=== PATIENT | female | born 1940 | race Caucasian/White ===

== ENCOUNTER 2018-10-01 08:48 | Outpatient (CLI) | payer MEDICARE ==
[2018-10-01] MEDS ORDERED: Gadobenate Dimeglumine 529 MG/1 ML (20ML VIAL) ONE (09:00)
--- NOTE | 2018-10-01 13:23 | MRI ---
MRI BRAIN WITH AND WITHOUT CONTRAST: INDICATIONS: Right arm numbness. FINDINGS: There is global atrophy without acute territorial infarction, intracranial mass effect, or midline sh ift. Compensatory dilatation of the ventricular system is present. There is mild chronic ischemic d isease involving the cerebral white matter. No hemorrhagic susceptibility is present within the brai n parenchyma. No pathologic intraaxial enhancement. There is a partially empty sella. Retention cy st formation is seen at the left maxillary sinus. IMPRESSION: 1. No acute territorial infarction or mass effect. 2. Mild chronic ischemic disease and global atrophy. POS: [facility]
--- NOTE | 2018-10-01 13:37 | MRI ---
MRI CERVICAL SPINE NONCONTRAST: INDICATIONS: Right arm numbness. No prior comparison imaging. FINDINGS: There is multilevel susceptibility, which distorts imaging anatomy and limits assessment, as a result of ACDF spanning the C4 through the C7 region. No obvious acute malalignment of the cervical spine. There is degenerative hypertrophy of the craniocervical junction and involving the atlantodental ar ticulation. No acute marrow edema. The cervical spinal cord demonstrates appropriate caliber and si gnal, within limitations. No significant central canal stenosis at the C1-C2 or C2-C3 levels. C3-C4: There is a mild broad-based disk osteophyte effacing the ventral thecal sac without significan t central canal stenosis. Mild bilateral neural foraminal narrowing is present, when combined with b ilateral facet hypertrophy. C4-C5: There is a left asymmetric broad-based osteophyte present, with mild effacement of the ventral thecal sac. There is minimal narrowing of each neural foramen. C5-C6: Mild central canal stenosis results in broad-based osteophyte. There is moderate to severe ri ght and moderate left neural foraminal narrowing due to uncinate process and facet hypertrophy. C6-7: Right asymmetric broad-based osteophytes present with slight effacement of the ventral right h emicord. There is mild central canal stenosis. Mild to moderate right neural foraminal narrowing as a result of asymmetric, prominent right uncinate process hypertrophy. This does efface the ventral aspect of the right C7 nerve root. C7-T1: No significant compromise of the central canal or neural foramina. IMPRESSION: Multilevel susceptibility from anterior cervical diskectomy and fusion change, limiting assessment. There is multilevel degenerative change, as outlined above. POS: [facility]
== END 2018-10-01 08:49 | disposition home or self-care (01) ==
LOC: SCSMRI 08:48
PROVIDERS: ATTEND Psychiatry & Neurology Neurology
DX: R20.0 Anesthesia of skin (principal); M47.812 Spondylosis without myelopathy or radiculopathy, cervical region; Z98.1 Arthrodesis status
CPT/HCPCS: 70553; 72141; 82565; A9577

== ENCOUNTER 2021-09-28 13:46 | Outpatient (CLI) | payer MEDICARE | END 2021-09-28 13:47 | disposition home or self-care (01) | LOC: BICMAMMO 13:46 | PROVIDERS: ATTEND Family Medicine | DX: Z12.31 Encounter for screening mammogram for malignant neoplasm of breast (principal) | CPT/HCPCS: 77063; 77067 ==

== ENCOUNTER 2022-01-21 10:27 | Outpatient (CLI) | payer MEDICARE ==
[2022-01-21 11:41] LABS: #Basophils 0.1 10x3/uL (0.0-0.2); #Eosinphils 0.4 10x3/uL (0.0-0.5); #Monocytes 0.9 10x3/uL (0.0-1.1); %Basophils 0.9 % (0.0-2.0); %Eosinophils 4.6 % (0.0-6.0); %Lymphocytes 22.8 % (18.0-47.0); %Monocytes 9.3 % (0.0-10.0); %Neutrophils 62.1 % (40.0-75.0); Hemoglobin 13.1 g/dL (12.0-15.5); Mean Corpuscular HGB CONC 32.8 g/dL (32.0-36.0); Mean Corpuscular Hemoglobin 30.5 pg (27.0-33.0); Mean Corpuscular Volume 93.2 fl (81.6-98.3); Mean Platelet Volume 10.7 fl (7.4-10.4); Platelet Count 296 10x3/uL (150-450); RBC Distribution Width 13.6 % (11.5-14.5); Red Blood Cell (RBC) Count 4.29 10x6/uL (3.90-5.03); White Blood Cell (WBC) Count 9.7 10x3/uL (3.5-10.5)
[2022-01-21 11:59] LABS: Anion Gap 20 mmol/L (10-20); BUN (Urea Nitrogen) 20 mg/dL (9.8-20.1); Calc. Creatinine Clearance 0 mL/min (70-130); Calcium 9.8 mg/dL (7.8-10.44); Carbon Dioxide 21 mmol/L (23-31); Chloride 107 mmol/L (98-107); Glucose 99 mg/dL (83-110); Potassium 4.5 mmol/L (3.5-5.1); Sodium 143 mmol/L (136-145)
[2022-01-21 12:19] LABS: INR-International Normal Ratio 0.9; Prothrombin Time 9.8 sec (9.5-12.1)
== END 2022-01-21 10:28 | disposition home or self-care (01) ==
LOC: LABBT 10:27
PROVIDERS: ATTEND Orthopaedic Surgery
DX: Z01.812 Encounter for preprocedural laboratory examination (principal); M17.11 Unilateral primary osteoarthritis, right knee; Z20.822 Contact with and (suspected) exposure to COVID-19
CPT/HCPCS: 80048; 85025; 85610; 87081; U0003; U0005

== ENCOUNTER 2022-01-26 05:38 | Observation (INO) | payer MEDICARE ==
[2022-01-24 10:19] VITALS: BMI 27.4
[2022-01-26] MEDS ORDERED: Vancomycin 1 GM/200 ML BAG ONE (05:57)
[2022-01-26] MEDS ORDERED: Sodium Chloride 0.9% 100 ML ONE ×2 (05:57→06:56)
[2022-01-26] MEDS ORDERED: Tranexamic Acid 1,000 MG/10 ML VIAL ONE (05:57)
[2022-01-26] MEDS ORDERED: fentaNYL Citrate/PF 100 MCG/2 ML SYRINGE ONE (06:28)
[2022-01-26] MEDS ORDERED: Bupivacaine 0.25% HCL 30 ML VIAL ONE (06:39)
[2022-01-26] MEDS ORDERED: Fentanyl 100 MCG/2 ML VIAL ONE ×2 (06:50→09:44)
[2022-01-26] MEDS ORDERED: CEFAZOLIN 2 GM VIAL ONE (06:56)
[2022-01-26] MEDS ORDERED: Dexamethasone 20 MG/5 ML VIAL ONE (07:20)
[2022-01-26] MEDS ORDERED: Labetalol HCl 100 MG/20 ML VIAL ONE (07:20)
[2022-01-26] MEDS ORDERED: Bupivacaine HCl 0.5%/Epinephrine 1:200,000/PF 30 ml Vial ONE (07:20)
[2022-01-26] MEDS ORDERED: PROPOFOL 200 MG/20 ML VIAL ONE (07:20)
[2022-01-26] MEDS ORDERED: Ondansetron PF 4 MG/2 ML Vial ONE (07:20)
[2022-01-26] MEDS ORDERED: Zolpidem Tartrate 5 MG TAB PO PRN (08:30)
[2022-01-26] MEDS ORDERED: Ondansetron PF 4 MG/2 ML Vial IVP PRN (08:30)
[2022-01-26] MEDS ORDERED: traMADol HCl 50 MG TAB PO PRN ×2 (08:30)
[2022-01-26] MEDS ORDERED: Promethazine HCl 25 MG/ML VIAL IM PRN (08:30)
[2022-01-26] MEDS ORDERED: Ropivacaine 0.2% 550 ML 550 ML NERVE BLCK SCH (08:30)
[2022-01-26] MEDS ORDERED: HYDROcodone/Acetaminophen 10/325 mg Tablet PO PRN ×2 (08:30)
[2022-01-26] MEDS ORDERED: Acetaminophen 325 MG TAB PO PRN (09:33)
[2022-01-26] MEDS ORDERED: diphenhydrAMINE 25 MG CAP PO PRN (09:33)
[2022-01-26] MEDS: Fentanyl 100 MCG/2 ML VIAL SLOW IVP PRN ×2 (13:08→15:49)
[2022-01-26] MEDS: Ketorolac Tromethamine 30 MG/ML VIAL IVP SCH ×3 (13:12→23:24)
[2022-01-26] MEDS: CEFAZOLIN 2 GM in Sodium Chloride 0.9% 100 ML IVPB SCH ×2 (15:49→23:25)
[2022-01-26] MEDS ORDERED: Vancomycin 1.5 GRAM/300 ML BAG 1.5 GM in Premix Bag 1 BAG IVPB SCH (18:00)
[2022-01-26] MEDS ORDERED: Lisinopril 20 MG TAB PO SCH (21:15)
[2022-01-26] MEDS ORDERED: hydrALAZINE 20 MG/ML VIAL SLOW IVP SCH (21:15)
[2022-01-26] MEDS: Aspirin 81 mg Enteric Coated Tablet PO SCH (21:17)
[2022-01-27 05:06] LABS: Hemoglobin 12.3 g/dL (12.0-16.0); Mean Corpuscular HGB CONC 32.7 g/dL (32.0-36.0); Mean Corpuscular Hemoglobin 31.9 pg (27.0-31.0); Mean Corpuscular Volume 97.4 fL (78.0-98.0); Mean Platelet Volume 7.9 fL (7.4-10.4); Platelet Count 287 thou/uL (130-400); RBC Distribution Width 12.1 % (11.5-14.5); Red Blood Cell (RBC) Count 3.87 mill/uL (4.20-5.40); White Blood Cell (WBC) Count 17.8 thou/uL (4.8-10.8)
[2022-01-27] MEDS: Ketorolac Tromethamine 30 MG/ML VIAL IVP SCH ×4 (06:06→23:36)
[2022-01-27] MEDS: Aspirin 81 mg Enteric Coated Tablet PO SCH ×2 (09:03→20:00)
[2022-01-27] MEDS: Ferrous Gluconate 324 MG TAB PO SCH ×2 (09:04→16:51)
[2022-01-27] MEDS: Multivitamin W/ Minerals 1 TAB PO SCH (09:04)
[2022-01-27] MEDS: Senokot S 8.6-50 MG TAB PO SCH ×2 (09:04→20:00)
[2022-01-27] MEDS: Fentanyl 100 MCG/2 ML VIAL SLOW IVP PRN (09:05)
[2022-01-27] MEDS: Gabapentin 300 MG CAP PO SCH ×2 (16:51→20:00)
[2022-01-27] MEDS ORDERED: hydrALAZINE 20 MG/ML VIAL SLOW IVP PRN (20:40)
[2022-01-27] MEDS ORDERED: Zolpidem Tartrate 5 MG TAB PO SCH (21:00)
[2022-01-28] MEDS: Ketorolac Tromethamine 30 MG/ML VIAL IVP SCH (05:32)
[2022-01-28 06:01] LABS: Hemoglobin 10.4 g/dL (12.0-16.0); Mean Corpuscular HGB CONC 33.4 g/dL (32.0-36.0); Mean Corpuscular Hemoglobin 32.4 pg (27.0-31.0); Mean Platelet Volume 8.5 fL (7.4-10.4); Platelet Count 242 thou/uL (130-400); RBC Distribution Width 12.2 % (11.5-14.5); Red Blood Cell (RBC) Count 3.21 mill/uL (4.20-5.40); White Blood Cell (WBC) Count 11.5 thou/uL (4.8-10.8)
[2022-01-28] MEDS ORDERED: Lisinopril 20 MG TAB PO SCH (09:00)
[2022-01-28] MEDS: Ferrous Gluconate 324 MG TAB PO SCH (10:06)
[2022-01-28] MEDS: Aspirin 81 mg Enteric Coated Tablet PO SCH (10:06)
[2022-01-28] MEDS: Senokot S 8.6-50 MG TAB PO SCH (10:07)
[2022-01-28] MEDS: Multivitamin W/ Minerals 1 TAB PO SCH (10:07)
[2022-01-28] MEDS: Gabapentin 300 MG CAP PO SCH ×2 (10:07→16:27)
[2022-01-28 12:01] VITALS: BP 153/67
[2022-01-28 16:32] VITALS: TEMP 98.5
[2022-01-28] MEDS ORDERED: Atorvastatin Calcium 40 MG TAB PO SCH (21:00)
== END 2022-01-28 16:54 | disposition home or self-care (01) ==
LOC: SDC 05:38 → SJJU 10:48 → SDC 11:50 → SJJU 11:50
PROVIDERS: ADMIT Orthopaedic Surgery; ATTEND Orthopaedic Surgery
PROC: 0SRC0J9 Replacement of Right Knee Joint with Synthetic Substitute, Cemented, Open Approach (ICD-10-PCS; principal; 2022-01-26)
PROC: 3E0T3BZ Introduction of Anesthetic Agent into Peripheral Nerves and Plexi, Percutaneous Approach (ICD-10-PCS; 2022-01-26)
DX: M17.11 Unilateral primary osteoarthritis, right knee (principal); I10 Essential (primary) hypertension; E78.5 Hyperlipidemia, unspecified; I69.351 Hemiplegia and hemiparesis following cerebral infarction affecting right dominant side; Z86.16 Personal history of COVID-19; Z79.899 Other long term (current) drug therapy; Z88.5 Allergy status to narcotic agent; Z88.8 Allergy status to other drugs, medicaments and biological substances
CPT/HCPCS: 27447; 64448; 73560; 85027 ×2; 97110 ×3; 97116 ×2; 97139 ×2; 97530 ×3; A4306; C1713; C1776; J3370; 36415; 96374; 96375; 96376; G0378; J0360; J0690; J1100; J1885; J2405; J2704; J2795; J3010; J3490; S0020